=== PATIENT | male | born 1975 | race Two or more races ===

== ENCOUNTER 2016-11-02 04:31 | Emergency (ER) | payer MEDICAID, OTHER ==
[2016-11-02] MEDS ORDERED: IBUPROFEN 800 MG TABLET ONE (05:30)
--- NOTE | 2016-11-02 07:45 | RAD ---
CHEST 2 VIEWS HISTORY: Fever and cough. Frontal and lateral chest radiographs dated 11/02/2016. COMPARISON: None. FINDINGS: FOCAL AIRSPACE OPACITY: No gross airspace consolidation. PLEURAL EFFUSION: None. CARDIOMEDIASTINAL SILHOUETTE: Nonenlarged. PNEUMOTHORAX: None identified. OSSEOUS STRUCTURES: No grossly destructive lesions. IMPRESSION: No acute cardiopulmonary process noted.
== END 2016-11-02 06:24 | disposition home or self-care (01) ==
LOC: ED 04:31
DX: J06.9 Acute upper respiratory infection, unspecified (principal); R07.89 Other chest pain